=== PATIENT | female | born 1970 | race Two or more races ===

== ENCOUNTER → 2024-02-04 | Outpatient (CLI) | payer BC, SELFPAY ==
--- NOTE | 2024-02-04 09:06 | XR_ITS ---
Examination: Thoracic spine 3 views Technique one AP lateral coned lateral upper dorsal spine 3 views Exam date and time: February 04, 2024 0922 hours INDICATIONS: Upper back pain beginning 2 weeks ago. FINDINGS: Thoracic dextroscoliosis 11 degrees Moderate osteopenia. No acute thoracic fracture Mild diffuse thoracic disc narrowing Mild thoracic spondylosis IMPRESSION: Thoracic dextroscoliosis 11 degrees Mild diffuse thoracic degenerative disc disease
== END | disposition home or self-care (01) ==
LOC: CDIM 08:50
PROVIDERS: PCP Family Medicine; Referring Provider Obstetrics & Gynecology; Visit Provider Obstetrics & Gynecology
DX: M41.84 Other forms of scoliosis, thoracic region (principal); M51.34 Other intervertebral disc degeneration, thoracic region
CPT/HCPCS: 72072